=== PATIENT | male | born 1985 | race Caucasian/White ===

== ENCOUNTER 2024-05-21 13:48 | Outpatient (CLI) | payer OTHER, SELFPAY ==
--- NOTE | 2024-05-21 13:53 | ECG_ITS ---
Test Date: 2024-05-21 14:17:39 Measurements Intervals [place] Rate: 60 P: 55 MO: 166 QRS: 49 QRSD: 99 T: 8 QT: 410 QTc: 410 Interpretive Statements SINUS RHYTHM DELAYED PRECORDIAL R/S TRANSITION MINIMAL Q WAVES- INFERIOR LEADS BORDERLINE ST-T WAVE ABNORMALITY- INF/LAT LEADS BORDERLINE ECG No previous ECG available for comparison Electronically Signed On 05-21-2024 14:16:00 CDT by Gamaliel Camilo D.O.
--- OUTSIDE RECORDS SUMMARY | 2024-05-21 15:51 | XMS_ITS | Clinical Summary ---
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 Active Probiotic Product (PROBIOTIC ADVANCED) Cap Take by mouth daily. Active Active Problems Problem Noted Date Diagnosed Date Rupture of left distal biceps tendon, subsequent encounter 05/21/2021 Social History Tobacco Use Types Packs/Day Years Used Date Smoking Tobacco: Every Day Cigarettes Smokeless Tobacco: Never Alcohol Use Standard Drinks/Week Comments Never 0 (1 standard drink = 0.6 oz pur e alcohol) Sex and Gender Information Value Date Recorded Sex Assigned at Not on file Legal Sex Male 5:58 PM [employer] Gender Identity Not on file Sexual Orientation Not on file Last Filed Vital Signs Vital Sign Reading Time Taken Comments Blood Pressure 140/88 06/11/2021 12:19 PM CDT Pulse 68 06/11/2021 12:19 PM CDT Temperature 36.2 C (97.1 F) 06/11/2021 12:19 PM CDT Respiratory Rate 18 06/11/2021 12:19 PM CDT Oxygen Saturation 94% 06/11/2021 12:19 PM CDT Inhaled Oxygen Concentration - - Weight 90.7 kg (200 lb) 09/10/2021 1:34 PM CDT Height 182.9 cm (6') 09/10/2021 1:34 PM CDT Body Mass Index 27.12 09/10/2021 1:34 PM CDT Plan of Treatment Health Maintenance Due Date Last Done Comments Annual Physical 1989 Pneumococcal Vaccine: Pediatrics (0 to 5 Years) and At-Risk Patients (6 to 64 Years) (1 of 2 - PCV) 01/15/1992 DTaP, Tdap and Td Vaccines (6 - Tdap) 09/15/2001 09/14/2001, 05/17/1991, 11/20/1987, Additional history exists Hepatitis C 01/15/2004 COVID-19 Vaccine ( season) 2023 Hepatitis B Vaccines Completed 04/19/1996, 01/09/1996, 11/07/1995 HPV Vaccines Aged Out No longer eligi ble based on patient's age to complete this topic Meningococcal B Vaccine Aged Out No l onger eligible based on patient's age to complete this topic Meningococcal Vaccine Aged Out No jorge cristian eligible based on patient's age to complete this topic RSV Immunizations Under 20 Months Aged Out No longer eligible based on patient's age to complete this topic Medical Devices Implanted Type Area Doctor Of [employer] Device Identifier Shelf Expiration Date Model / Serial / Lot Implant [employer]posite Distal Biceps Repair - [id number] Implanted:Qty: 1 on 06/11/2021 by Finn Melgar MD at [facility] Screw Left: El[employer] [id number] 11/13/2022 [id number] / / [id number] Insurance MEDICAID Care Teams Indian Blanket Weaver Relationship Specialty Start Date End Date None, Provider, PCP - General 05/18/21
== END 2024-05-21 13:49 | disposition home or self-care (01) ==
LOC: CHSCARD 13:50
PROVIDERS: PCP Internal Medicine; Visit Provider Internal Medicine Cardiovascular Disease
DX: R07.9 Chest pain, unspecified (principal)
CPT/HCPCS: 93005

== ENCOUNTER 2024-07-11 10:38 | Outpatient (CLI) | payer OTHER, SELFPAY ==
--- NOTE | 2024-07-11 10:41 | EST_ITS ---
Patient Info Name: Lauro Jordan Age: 39 years : 1985 Gender: Male Ht: 71 in Wt: 220 lbs BSA: 2.26 m2 HR: 72 bpm BP: 148 / 91 mmHg Exam Date: 07/11/2024 10:41 AM Patient Status: O Admit Date: 07/11/2024 Exam Type: CA stress test treadmill A treadmill exercise stress test was performed. Staff Attending Provider: Gamaliel Camilo DO Exercise Technologist: Petty Avina Exercise Physician: Gamaliel Camilo DO Summary 1. 1. Negative Avelino exercise stress test for ischemic ST changes by ECG criteria. 2. 2. Good functional capacity, achieving 10 METs of workload. 3. 3. Baseline hypertension. 4. 4. Appropriate HR response to exercise. 5. 5. Appropriate HR recovery at 1 minute post exercise. 6. 6. No imaging with stress testing. 7. 7. Patient informed of the above results. Protocol: Avelino Stress ECG Details Stage: REST Duration (min): 0 min : 49 sec Speed (mph): 0.0 Grade (%): 0 HR (bpm): 70 SBP (mmHg): 148 DBP (mmHg): 91 METS: --- Stage: REST Duration (min): 3 min : 30 sec Speed (mph): 0.0 Grade (%): 0 HR (bpm): 91 SBP (mmHg): 148 DBP (mmHg): 91 METS: --- Stage: STAGE 1 Duration (min): 1 min : 0 sec Speed (mph): 1.7 Grade (%): 10 HR (bpm): 112 SBP (mmHg): 148 DBP (mmHg): 91 METS: --- Stage: STAGE 1 Duration (min): 2 min : 0 sec Speed (mph): 1.7 Grade (%): 10 HR (bpm): 115 SBP (mmHg): 148 DBP (mmHg): 91 METS: --- Stage: STAGE 1 Duration (min): 3 min : 0 sec Speed (mph): 1.7 Grade (%): 10 HR (bpm): 117 SBP (mmHg): 174 DBP (mmHg): 93 METS: --- Stage: STAGE 2 Duration (min): 1 min : 0 sec Speed (mph): 2.5 Grade (%): 12 HR (bpm): 131 SBP (mmHg): 174 DBP (mmHg): 93 METS: --- Stage: STAGE 2 Duration (min): 2 min : 0 sec Speed (mph): 2.5 Grade (%): 12 HR (bpm): 134 SBP (mmHg): 187 DBP (mmHg): 93 METS: --- Stage: STAGE 2 Duration (min): 3 min : 0 sec Speed (mph): 2.5 Grade (%): 12 HR (bpm): 137 SBP (mmHg): 187 DBP (mmHg): 93 METS: --- Stage: STAGE 3 Duration (min): 1 min : 0 sec Speed (mph): 3.4 Grade (%): 14 HR (bpm): 152 SBP (mmHg): 196 DBP (mmHg): 92 METS: --- Stage: STAGE 3 Duration (min): 2 min : 0 sec Speed (mph): 3.4 Grade (%): 14 HR (bpm): 153 SBP (mmHg): 196 DBP (mmHg): 92 METS: --- Stage: STAGE 3 Duration (min): 3 min : 0 sec Speed (mph): 3.4 Grade (%): 14 HR (bpm): 157 SBP (mmHg): 204 DBP (mmHg): 91 METS: --- Stage: RECOVERY Duration (min): 0 min : 59 sec Speed (mph): 0.0 Grade (%): 0 HR (bpm): 119 SBP (mmHg): 204 DBP (mmHg): 91 METS: --- Stage: RECOVERY Duration (min): 1 min : 59 sec Speed (mph): 0.0 Grade (%): 0 HR (bpm): 104 SBP (mmHg): 204 DBP (mmHg): 91 METS: --- Stage: RECOVERY Duration (min): 2 min : 59 sec Speed (mph): 0.0 Grade (%): 0 HR (bpm): 93 SBP (mmHg): 168 DBP (mmHg): 89 METS: --- Stage: RECOVERY Duration (min): 3 min : 1 sec Speed (mph): 0.0 Grade (%): 0 HR (bpm): 94 SBP (mmHg): 168 DBP (mmHg): 89 METS: --- Rest HR: 91 bpm Peak HR: 158 bpm Rest Sys BP: 148 mmHg Peak Sys BP: 204 mmHg Max Pred HR: 182 bpm % Max Pred HR: 87 % Target HR: 155 bpm Max RPP: 32,232 bpm*mmHg Gamez Score: 3 Termination Reason: Reached target heart rate or workload Cardiac Symptoms: Shortness of breath Max ST Seg Deviation: 1.20 mm Total Time: 9 min : 0 sec Rest Charles BP: 91 mmHg Peak [place] BP: 91 mmHg Angina Score: None Total METS: 10.3 Resting ECG Sinus rhythm. Stress ECG No ST changes. Arrhythmias None. Report Signatures
== END 2024-07-11 10:39 | disposition home or self-care (01) ==
PROVIDERS: PCP Internal Medicine; Visit Provider Internal Medicine Cardiovascular Disease
DX: R07.9 Chest pain, unspecified (principal)
CPT/HCPCS: 93017